=== PATIENT | female | born 1975 | race Caucasian/White ===

== ENCOUNTER 2018-01-27 11:55 | Day surgery (SDC) | payer MEDICAID ==
[~2018-01-27] VITALS: Ht 170.2 cm; Wt 164.1 kg
[2018-01-27 12:00] VITALS: BP 121/77
[2018-01-27] MEDS ORDERED: LISI10TA4 PO (12:32)
[2018-01-27] MEDS ORDERED: METF-436 PO (12:33)
[2018-01-27] MEDS ORDERED: MIDAZolam 5mg/5ml vial ONE (12:44)
[2018-01-27] MEDS ORDERED: fentaNYL/PF 50MCG/1 ML 2ML syringe ONE (12:44)
[2018-01-27] MEDS ORDERED: LIDOcaine Viscous 15ml cup ONE (12:45)
[2018-01-27 13:29] VITALS: BP 129/82
[2018-01-27 13:39] VITALS: BP 125/53
[2018-01-27 13:49] VITALS: BP 120/76
== END 2018-01-27 14:10 | disposition home or self-care (01) ==
LOC: GI LAB 11:55
PROVIDERS: ATTEND Internal Medicine Gastroenterology
DX: E66.01 Morbid (severe) obesity due to excess calories (principal); I10 Essential (primary) hypertension; Z79.84 Long term (current) use of oral hypoglycemic drugs; Z88.0 Allergy status to penicillin; Z68.43 Body mass index [BMI] 50.0-59.9, adult; Z79.899 Other long term (current) drug therapy
CPT/HCPCS: 43239; J2250; J3010; J7030; 99152; A4620

== ENCOUNTER 2019-05-11 13:28 | Outpatient (CLI) | payer MEDICAID ==
[~2019-05-11] VITALS: Ht 170.2 cm; Wt 122.9 kg
[~2019-05-11 13:28] MED LIST: LISI10TA4 PO; METF-436 PO
[2019-05-11 15:05] LABS: CLARITY,URINE CLEAR (Clear); COLOR,URINE YELLOW (Yellow); GLUCOSE, URINE NEGATIVE (Neg); KETONES,URINE NEGATIVE (Neg); LEUKOCYTE ESTERASE ,URINE TRACE (Neg); NITRITES, URINE NEGATIVE (Neg); OCCULT BLOOD,URINE NEGATIVE (Neg); PROTEIN,URINE NEGATIVE (Neg); UROBILINOGEN,URINE >=8.0 E.U/dL (0.2-1.0)
[2019-05-11 15:10] LABS: UA COLLECTION TYPE CLN CATCH MIDSTREAM
[2019-05-11 15:14] LABS: BACTERIA,URINE FEW /HPF (Neg); MUCUS STRANDS NONE SEEN /LPF (Neg); RBC,URINE 0-2 /HPF (0-2); SQUAMOUS EPITHELIAL CELL,UR FEW /LPF (FEW); WBC,URINE 0-4 /HPF (0-4)
[2019-05-11] MEDS ORDERED: PROBIOTIC (15:14)
[2019-05-11] MEDS ORDERED: HYDR-4353 PO (15:14)
[2019-05-11] MEDS ORDERED: OMEGA 3 (15:14)
[2019-05-11] MEDS ORDERED: B-12 (15:14)
[2019-05-11] MEDS ORDERED: MULT-1085 PO (15:14)
[2019-05-11] MEDS ORDERED: D-3 (15:14)
[2019-05-11] MEDS ORDERED: CALCIUM (15:14)
[2019-05-11] MEDS ORDERED: IRON (15:14)
[2019-05-11 16:02] LABS: BASOPHILS % (AUTO) 0.3 % (0-1); EOSINOPHILS # (AUTO) 0.2 X10'3 (0-0.9); EOSINOPHILS % (AUTO) 1.6 % (0-6); LYMPHOCYTES # (AUTO) 3.2 X10'3 (1.1-4.8); LYMPHOCYTES % (AUTO) 33.2 % (21-51); MEAN CORPUSCULAR HEMOGLOBIN 26.5 PG (27.0-31.0); MEAN CORPUSCULAR HGB CONC 33.1 g/dL (33.0-36.5); MEAN PLATELET VOLUME 8.9 FL (7.4-10.4); MONOCYTES # (AUTO) 0.5 X10'3 (0-0.9); NEUTROPHILS # (AUTO) 5.7 X10'3 (1.8-7.7); NEUTROPHILS % (AUTO) 59.9 % (42-75); PRE OP HEMATOCRIT 35.1 % (35.0-45.0); PRE OP HEMOGLOBIN 11.6 g/dL (12.0-16.0); PRE OP PLATELET COUNT 379 X10'3 (140-440); RED BLOOD COUNT 4.39 X10'6 (4.20-5.60); RED CELL DISTRIBUTION WIDTH 13.9 % (11.5-14.5)
[2019-05-11 16:09] LABS: PRE OP PROTIME 10.4 SECONDS (9.0-12.0)
[2019-05-11 16:12] LABS: ALBUMIN 3.3 G/DL (3.4-5.0); ALBUMIN/GLOBULIN RATIO 0.8 (1.1-1.5); ALKALINE PHOSPHATASE 72 IU/L (46-116); BLOOD UREA NITROGEN 7 MG/DL (7-18); BUN/CREATININE RATIO 11.1 (6.6-38.0); CALCIUM 9.1 MG/DL (8.5-10.1); CHLORIDE 104 MMOL/L (99-107); CREATININE 0.63 MG/DL (0.40-0.90); PRE OP ALT 12 U/L (30-65); PRE OP ANION GAP 5 (8-16); PRE OP AST 25 U/L (10-37); PRE OP BILIRUB, TOTAL 0.4 MG/DL (0.0-1.0); PRE OP GLUCOSE 79 MG/DL (70-104); PRE OP POTASSIUM 3.9 MMOL/L (3.4-5.1); PRE OP SODIUM 140 MMOL/L (135-145); TOTAL CARBON DIOXIDE 31.3 MMOL/L (24-32); TOTAL PROTEIN 7.6 G/DL (6.4-8.2); eGFR > 90 ML/MIN
[2019-05-11 16:43] LABS: HCG SERUM QL NEGATIVE
[2019-05-13] MEDS ORDERED: ringers solution, lacted 1,000 ML IV SCH (05:00)
[2019-05-13] MEDS ORDERED: gentamicin inj 430 MG in normal saline 100ml IV soln 89.25 ML IV ONE (05:30)
[2019-05-13] MEDS ORDERED: clindamycin-Cleocin 900mg/D5W 50 ML IV ONE (05:30)
[2019-05-13] MEDS ORDERED: famotidine 20mg tablet PO ONE (05:30)
== END 2019-05-11 23:59 | disposition home or self-care (01) ==
LOC: PRE-OP 13:28 → EDSTATUS 05-13 09:45
PROVIDERS: ATTEND Obstetrics & Gynecology
DX: Z01.812 Encounter for preprocedural laboratory examination (principal); R10.9 Unspecified abdominal pain; R19.00 Intra-abdominal and pelvic swelling, mass and lump, unspecified site
CPT/HCPCS: 36415; 80053; 81001; 84703; 85025; 85610; 85730; 86885; 86900; 86901; 87088

== ENCOUNTER 2021-09-01 02:06 | Emergency (ER) | payer MEDICAID ==
[~2021-09-01] VITALS: Ht 170.2 cm; Wt 109.1 kg
[~2021-09-01 02:06] MED LIST changes: +B-12; +CALCIUM; +D-3; +HYDR-4353 PO; +IRON; -LISI10TA4 PO; -METF-436 PO; +MULT-1085 PO; +OMEGA 3; +PROBIOTIC
[2021-09-01 02:44] LABS: BASOPHILS % (AUTO) 0.1 % (0-1); EOSINOPHILS # (AUTO) 0.1 X10'3 (0-0.9); EOSINOPHILS % (AUTO) 0.4 % (0-6); HEMATOCRIT 41.8 % (35.0-45.0); HEMOGLOBIN 13.9 g/dl (12.0-16.0); LYMPHOCYTES # (AUTO) 1.5 X10'3 (1.1-4.8); LYMPHOCYTES % (AUTO) 9.1 % (21-51); MEAN CORPUSCULAR HEMOGLOBIN 26.8 PG (27.0-31.0); MEAN CORPUSCULAR HGB CONC 33.3 g/dL (33.0-36.5); MEAN CORPUSCULAR VOLUME 80.7 FL (78-98); MEAN PLATELET VOLUME 8.3 FL (7.4-10.4); MONOCYTES # (AUTO) 0.7 X10'3 (0-0.9); MONOCYTES % (AUTO) 4.2 % (2-12); NEUTROPHILS # (AUTO) 14.3 X10'3 (1.8-7.7); NEUTROPHILS % (AUTO) 86.2 % (42-75); PLATELET COUNT 137 X10'3 (140-440); RED BLOOD COUNT 5.18 X10'6 (4.20-5.60); RED CELL DISTRIBUTION WIDTH 16.2 % (11.5-14.5); WHITE BLOOD COUNT 16.6 X10'3 (4.5-11.0)
[2021-09-01 02:58] LABS: ALANINE AMINOTRANSFERASE 18 U/L (12-78); ALBUMIN/GLOBULIN RATIO 1.1 (1.1-1.5); ALKALINE PHOSPHATASE 119 IU/L (46-116); ANION GAP 11 (8-16); ASPARTATE AMINO TRANSFERASE 33 U/L (10-37); BILIRUBIN,TOTAL 0.8 MG/DL (0.1-1.0); BLOOD UREA NITROGEN 19 MG/DL (7-18); BUN/CREATININE RATIO 23.8 (6.6-38.0); CALCIUM 9.2 MG/DL (8.5-10.1); CHLORIDE 104 MMOL/L (99-107); GLUCOSE 179 MG/DL (70-104); LIPASE 72 U/L (73-393); POTASSIUM 3.2 MMOL/L (3.5-5.1); SODIUM 139 MMOL/L (135-145); TOTAL PROTEIN 7.6 G/DL (6.4-8.2); eGFR 77 ML/MIN
[2021-09-01] MEDS ORDERED: pantoprazole IV 80 MG in normal saline 100ml IV soln 100 ML IV ONE (03:10)
[2021-09-01] MEDS ORDERED: proCHLORperazine 10 MG/2 ml inj IV ONE (03:10)
[2021-09-01] MEDS ORDERED: morphine 4 MG/ML inj SYRINge IV ONE (03:10)
[2021-09-01] MEDS ORDERED: mag hydrox/Alum hydrox/simeth 30ml oral suspension PO ONE (03:10)
[2021-09-01] MEDS ORDERED: LIDOcaine Viscous 15ml cup MM ONE (03:10)
[2021-09-01] MEDS ORDERED: famotidine/PF 10 mg/ml inj IV ONE (03:10)
[2021-09-01] MEDS ORDERED: normal saline 1000ml 1,000 ML IV ONE (03:15)
[2021-09-01] MEDS: ondansetron/PF 4mg/2ml inj IV ONE ×2 (03:29→03:51)
[2021-09-01] MEDS: pantoprazole 40MG/NS 100ML BAG 100 ML IV SCH ×2 (03:31→04:21)
[2021-09-01] MEDS ORDERED: morphine 4 MG/ML inj SYRINge ONE (03:40)
[2021-09-01 04:09] LABS: CLARITY,URINE CLEAR (Clear); COLOR,URINE YELLOW (Yellow); GLUCOSE, URINE NEGATIVE (Neg); KETONES,URINE 15 mg/dl (Neg); LEUKOCYTE ESTERASE ,URINE SMALL (Neg); NITRITES, URINE NEGATIVE (Neg); OCCULT BLOOD,URINE NEGATIVE (Neg); PROTEIN,URINE NEGATIVE (Neg); URINE HCG NEGATIVE (NEG); UROBILINOGEN,URINE 0.2 E.U/dL (0.2-1.0)
[2021-09-01 04:13] LABS: UA COLLECTION TYPE CLN CATCH MIDSTREAM
[2021-09-01 04:14] LABS: BACTERIA,URINE FEW /HPF (Neg); RBC,URINE 0-2 /HPF (0-2); SQUAMOUS EPITHELIAL CELL,UR FEW /LPF (FEW)
[2021-09-01] MEDS ORDERED: PANT-47 PO (05:33)
[2021-09-01] MEDS ORDERED: PROM25SU9 RC (05:33)
[2021-09-01] MEDS ORDERED: ONDA8TAB13 PO (05:33)
[2021-09-01 07:01] VITALS: BP 121/74
== END 2021-09-01 07:44 | disposition home or self-care (01) ==
LOC: ER 02:06
DX: K52.89 Other specified noninfective gastroenteritis and colitis (principal); Z88.0 Allergy status to penicillin; Z79.899 Other long term (current) drug therapy
CPT/HCPCS: 36415; 74176; 80053; 81001; 81025; 83690; 84145; 84484; 85025; 87077; 87088; 87186; 96361; 96374; 96375; 99285; C9113; J0780; J2270; J3490; J7030; J2405